=== PATIENT | female | born 1985 | race Caucasian/White ===

== ENCOUNTER 2018-04-06 12:12 | Emergency (ER) | payer MEDICARE, MEDICAID ==
[2018-04-06] MEDS ORDERED: Lidocaine 2% Viscous Solution 15 ML Cup PO ONE (12:17)
[2018-04-06] MEDS ORDERED: Benzocaine 20% Topical Spray UD MUCMEM ONE (12:17)
--- NOTE | 2018-04-06 12:51 | EDM.PDOC ---
ED HPI GENERAL MEDICAL PROBLEM - General Chief Complaint: ENT Problem Stated Complaint: TOOTHACHE Time Seen by Provider: 04/06/18 12:17 Source of Information: Reports: Patient History Limitations: Reports: No Limitations - History of Present Illness INITIAL COMMENTS - FREE TEXT/NARRATIVE: HISTORY AND PHYSICAL: History of present illness: Patient is a 33-year-old female who presents to the emergency room today with complaints of right posterior dental pain and swelling. He eats several months ago she did have cement placed in a broken tooth which recently dislodged while eating. She states now that she has increased pain, swelling and is concerned she may have an infection. She did call her dentist and is able to get in next week. She states she has been taking a large amount of Tylenol and ibuprofen without any relief She denies any fever, chills, chest pain, shortness of breath, GI or symptoms. Review of systems: As per history of present illness and below otherwise all systems reviewed and negative. Past medical history: As per history of present illness and as reviewed below otherwise noncontributory. Surgical history: As per history of present illness and as reviewed below otherwise noncontributory. Social history: No reported history of drug or alcohol abuse. Family history: As per history of present illness and as reviewed below otherwise noncontributory. Physical exam: General: Developed and well-nourished 33-year-old female. Alert and oriented. Nontoxic appearing and in no acute distress. HEENT: Atraumatic, normocephalic, pupils equal and reactive bilaterally, negative for conjunctival pallor or scleral icterus, mucous membranes moist, throat clear, neck supple, nontender, trachea midline. Tooth #30 one appears to have a gap where cement had been placed, the area along the gumline is erythematous and tender No drooling or trismus noted. No meningeal signs Lungs: Clear to auscultation, breath sounds equal bilaterally, chest nontender. Heart: S1S2, regular rate and rhythm without overt murmur Abdomen: Soft, nondistended, nontender. Negative for masses or hepatosplenomegaly. Negative for costovertebral tenderness. Pelvis: Stable nontender. Genitourinary: Deferred. Rectal: Deferred. Skin: Intact, warm, dry. No lesions or rashes noted. Extremities: Atraumatic, negative for cords or calf pain. Neurovascular unremarkable. Neuro: Awake, alert, oriented. Cranial nerves II through XII unremarkable. Cerebellum unremarkable. Motor and sensory unremarkable throughout. Exam nonfocal. Notes: Prescription for Pen-VK and Lisbon has been given. She does have an appointment with her dentist which I encouraged her to keep for definitive care. She is agreeable to plan of care. She denies any further questions at this time. Diagnostics: [] Therapeutics: Dental balls Impression: Dental abscess Plan: 1. Please take your antibiotic as prescribed 2. Tylenol and/or ibuprofen as needed. Lisbon for moderate to severe pain. This medication may cause drowsiness a do not take it will driving her needing to be functioning outside of the house. 3. Keep your appointment with the dentist. Return to the ER as needed and as discussed. Definitive disposition and diagnosis as appropriate pending reevaluation and review of above. Right Oral/Mouth Pain Score (Numeric/FACES): 6 - Related Data Allergies Allergy/AdvReac Type Severity Reaction Status Date / Time No Known Allergies Allergy Verified 04/06/18 12:35 Home Meds: Home Meds ARIPiprazole [Abilify Maintena] 300 mg SQ ONCALL 04/06/18 [History] OLANZapine 20 mg PO BID 04/06/18 [History] hydrOXYzine HCl [hydrOXYzine] 25 mg PO ASDIRECTED 04/06/18 [History] Past Medical History Psychiatric History: Reports: Anxiety, Depression, Other (See Below) Other Psychiatric History: mood disorder, possible schizo effective disorder - Infectious Disease History Infectious Disease History: Reports: Chicken Pox Social & Family History - Family History Family Medical History: Noncontributory - Tobacco Use Smoking Status *Q: Current Every Day Smoker Years of Tobacco use: 15 Packs/Tins Daily: 0.5 - Caffeine Use Caffeine Use: Reports: Coffee, Soda - Recreational Drug Use Recreational Drug Use: No ED ROS ENT - Review of Systems Review Of Systems: ROS reveals no pertinent complaints other than HPI. ED EXAM, ENT - Physical Exam Exam: See Below (See dictation) Course - Vital Signs Last Recorded V/S: Last Vital Signs Temp 97.9 F 04/06/18 12:30 Pulse 82 04/06/18 13:00 Resp 18 04/06/18 13:00 BP 115/69 04/06/18 13:00 Pulse Ox 98 04/06/18 13:00 - Orders/Labs/Meds Meds: Medications Discontinued Medications Generic Name Dose Route Start Last Admin Trade Name Sam PRN Reason Stop Dose Admin Benzocaine 2 each 04/06/18 12:17 04/06/18 12:52 Hurricaine One 20% MUCMEM 04/06/18 12:18 2 each ONETIME ONE Administration Lidocaine HCl 15 ml 04/06/18 12:17 04/06/18 12:52 Xylocaine 2% Viscous PO 04/06/18 12:18 15 ml ONETIME ONE Administration Departure - Departure Time of Disposition: 12:50 Disposition: Home, Self-Care 01 Clinical Impression: Dental abscess - Discharge Information Instructions: Dental Abscess, [id number] Referrals: PCP,Unknown [Primary Care Provider] - Forms: ED Department Discharge Additional Instructions: The following information is given to patients seen in the emergency department who are being discharged to home. This information is to outline your options for follow-up care. We provide all patients seen in our emergency department with a follow-up referral. The need for follow-up, as well as the timing and circumstances, are variable depending upon the specifics of your emergency department visit. If you don't have a primary care physician on staff, we will provide you with a referral. We always advise you to contact your personal physician following an emergency department visit to inform them of the circumstance of the visit and for follow-up with them and/or the need for any referrals to a consulting specialist. The emergency department will also refer you to a specialist when appropriate. This referral assures that you have the opportunity for follow-up care with a specialist. All of these measure are taken in an effort to provide you with optimal care, which includes your follow-up. Under all circumstances we always encourage you to contact your private physician who remains a resource for coordinating your care. When calling for follow-up care, please make the office aware that this follow-up is from your recent emergency room visit. If for any reason you are refused follow-up, please contact the [facility] Emergency Department at and asked to speak to the emergency department charge nurse. [facility] [address] [place] [id number] 1. Please take your antibiotic as prescribed 2. Tylenol and/or ibuprofen as needed. Lisbon for moderate to severe pain. This medication may cause drowsiness a do not take it will driving her needing to be functioning outside of the house. 3. Keep your appointment with the dentist. Return to the ER as needed and as discussed.
== END 2018-04-06 13:00 | disposition home or self-care (01) ==
LOC: MW.ED 12:12
DX: K04.7 Periapical abscess without sinus (principal); F41.9 Anxiety disorder, unspecified; F32.9 Major depressive disorder, single episode, unspecified; F17.210 Nicotine dependence, cigarettes, uncomplicated; Z79.899 Other long term (current) drug therapy
CPT/HCPCS: 99282; A9270

== ENCOUNTER 2019-09-25 15:48 | Emergency (ER) | payer MEDICARE, MEDICAID ==
--- NOTE | 2019-09-25 16:56 | EDM.PDOC ---
ED HPI GENERAL MEDICAL PROBLEM - General Chief Complaint: Respiratory Problem Stated Complaint: PAIN IN CHEST FLU LIKE SYMPTOMS Time Seen by Provider: 09/25/19 16:55 Source of Information: Reports: Patient History Limitations: Reports: No Limitations - History of Present Illness INITIAL COMMENTS - FREE TEXT/NARRATIVE: HISTORY AND PHYSICAL: History of present illness: Patient is a 34-year-old female who presents to the emergency room with complaints of flu like symptoms 5 days. She states she's had body aches subjective fever and chills. She's had a dry nonproductive cough which she states she's had a few episodes where she will cough so hard she is "vomited". Patient denies any headache, change in vision, syncope or near syncope. Denies any chest pain, back pain, shortness of breath or cough. Denies any abdominal pain, diarrhea, constipation or dysuria. Has not noted any blood in urine or stool. Patient has been eating and drinking appropriately. Denies any previous history of any lung problems. Does smoke pack per day daily Review of systems: As per history of present illness and below otherwise all systems reviewed and negative. Past medical history: As per history of present illness and as reviewed below otherwise noncontributory. Surgical history: As per history of present illness and as reviewed below otherwise noncontributory. Social history: See social history for further information Family history: As per history of present illness and as reviewed below otherwise noncontributory. Physical exam: General: Well-developed and well-nourished 34-year-old female. Alert and oriented. Nontoxic appearing and in no acute distress. HEENT: Atraumatic, normocephalic, pupils equal and reactive bilaterally, negative for conjunctival pallor or scleral icterus, mucous membranes moist, TMs normal bilaterally, throat clear, neck supple, nontender, trachea midline. No drooling or trismus noted. No meningeal signs. No hot potato voice noted. Lungs: Clear to auscultation, breath sounds equal bilaterally, chest nontender. Heart: S1S2, regular rate and rhythm without overt murmur Abdomen: Soft, nondistended, nontender. Negative for masses or hepatosplenomegaly. Negative for costovertebral tenderness. Pelvis: Stable nontender. Skin: Intact, warm, dry. No lesions or rashes noted. Extremities: Atraumatic, moves all extremities per self without difficulty or deficits, negative for cords or calf pain. Neurovascular unremarkable. Neuro: Awake, alert, oriented. Cranial nerves II through XII unremarkable. Cerebellum unremarkable. Motor and sensory unremarkable throughout. Exam nonfocal. Notes: Chest x-ray shows subtle opacities identified at the superior segment of the right lower lobe. Due to patient's symptoms I will treat with a Z-César. Findings and supportive care measures were reviewed and discussed. Voices understanding and is agreeable to plan of care. Denies any further questions or concerns at this time. Diagnostics: Influenza, Flu Swab, CXR Therapeutics: Angelica Alexander Prescription: Zpak Phen. w/ Cod Impression: Bronchitis Plan: 1. Please use Tylenol and/or Ibuprofen as needed for pain and fever management. 2. Get plenty of Rest. Encourage fluids to prevent dehydration. 3. Please follow up with your primary care provider. Return to the ED as needed as discussed. Definitive disposition and diagnosis as appropriate pending reevaluation and review of above. chest Pain Score (Numeric/FACES): 7 - Related Data Allergies Allergy/AdvReac Type Severity Reaction Status Date / Time aspirin Allergy Vomiting Verified 09/25/19 17:09 honey Allergy Stomach Verified 09/25/19 17:10 Upset Home Meds: Home Meds ARIPiprazole [Abilify Maintena] 300 mg SQ ONCALL 04/06/18 [History] OLANZapine 20 mg PO BID 04/06/18 [History] hydrOXYzine HCl [hydrOXYzine] 25 mg PO ASDIRECTED 04/06/18 [History] Past Medical History Psychiatric History: Reports: Anxiety, Depression, Other (See Below) Other Psychiatric History: mood disorder, possible schizo effective disorder - Infectious Disease History Infectious Disease History: Reports: Chicken Pox Social & Family History - Family History Family Medical History: Noncontributory - Caffeine Use Caffeine Use: Reports: Coffee, Soda ED ROS GENERAL - Review of Systems Review Of Systems: Comprehensive ROS is negative, except as noted in HPI. ED EXAM, GENERAL - Physical Exam Exam: See Below (See dictation) Course - Vital Signs Last Recorded V/S: Last Vital Signs Temp 98.5 F 09/25/19 16:51 Pulse 93 09/25/19 16:51 Resp 18 09/25/19 16:51 BP 101/67 11/20/19 16:51 Pulse Ox 95 09/25/19 16:51 - Orders/Labs/Meds Orders: Active Orders 24 hr Category Date Time Status EKG Documentation Completion [RC] STAT Care 09/25/19 16:55 Active RT Aerosol Therapy [RC] ASDIRECTED Care 09/25/19 16:57 Active Meds: Medications Discontinued Medications Generic Name Dose Route Start Last Admin Trade Name Sam PRN Reason Stop Dose Admin Albuterol/Ipratropium 3 ml 09/25/19 16:57 09/25/19 17:10 Duoneb 3.0-0.5 Mg/3 Ml NEB 09/25/19 16:58 3 ml ONETIME ONE Administration Ondansetron HCl 4 mg 09/25/19 16:57 09/25/19 17:09 Zofran Odt PO 09/25/19 16:58 4 mg ONETIME ONE Administration Departure - Departure Time of Disposition: 18:05 Disposition: Home, Self-Care 01 Clinical Impression: Bronchitis - Discharge Information Instructions: Acute Bronchitis, Adult, [id number] Referrals: Katelyn Ashby [facility]ER [Primary Care Provider] - Forms: ED Department Discharge Additional Instructions: The following information is given to patients seen in the emergency department who are being discharged to home. This information is to outline your options for follow-up care. We provide all patients seen in our emergency department with a follow-up referral. The need for follow-up, as well as the timing and circumstances, are variable depending upon the specifics of your emergency department visit. If you don't have a primary care physician on staff, we will provide you with a referral. We always advise you to contact your personal physician following an emergency department visit to inform them of the circumstance of the visit and for follow-up with them and/or the need for any referrals to a consulting specialist. The emergency department will also refer you to a specialist when appropriate. This referral assures that you have the opportunity for follow-up care with a specialist. All of these measure are taken in an effort to provide you with optimal care, which includes your follow-up. Under all circumstances we always encourage you to contact your private physician who remains a resource for coordinating your care. When calling for follow-up care, please make the office aware that this follow-up is from your recent emergency room visit. If for any reason you are refused follow-up, please contact the [facility] Emergency Department at and asked to speak to the emergency department charge nurse. [facility] [address] [place] [address] [id number] 1. Please use Tylenol and/or Ibuprofen as needed for pain and fever management. 2. Get plenty of Rest. Encourage fluids to prevent dehydration. 3. Please follow up with your primary care provider. Return to the ED as needed as discussed. - My Orders Last 24 Hours: My Active Orders 09/25/19 16:55 EKG Documentation Completion [RC] STAT 09/25/19 16:57 RT Aerosol Therapy [RC] ASDIRECTED - Assessment/Plan Last 24 Hours: My Active Orders 09/25/19 16:55 EKG Documentation Completion [RC] STAT 09/25/19 16:57 RT Aerosol Therapy [RC] ASDIRECTED
[2019-09-25] MEDS ORDERED: Albuterol/Ipratropium 3.0-0.5 MG/3 ML Neb Soln NEB ONE (16:57)
[2019-09-25] MEDS ORDERED: Ondansetron 4 MG Tab.DIS PO ONE (16:57)
--- NOTE | 2019-09-25 17:47 | CR ---
Indication: Cough. Fever. Technique: PA and lateral views the chest were obtained. Comparison: None Findings: The heart is normal in size. The lungs are clear. No infiltrate, pleural effusion, or pneumothorax is identified. Subtle opacities are identified at the superior segment of the right lower lobe. Impression: Subtle opacities at the superior segment of the right lower lobe, a very early or developing infiltrate cannot be excluded Dictated by Bambi Velazquez MD @ Sep 25 2019 5:45PM Signed by Dr. Bambi Velazquez @ Sep 25 2019 5:46PM
== END 2019-09-25 18:17 | disposition home or self-care (01) ==
LOC: MW.ED 15:48
DX: J40 Bronchitis, not specified as acute or chronic (principal); Z88.6 Allergy status to analgesic agent; Z91.018 Allergy to other foods
CPT/HCPCS: 71046; 87804; 93005; 94640; 99285; A9270; J7620-GY